=== PATIENT | male | born 1980 | race Asian ===

== ENCOUNTER 2018-12-15 12:35 | Emergency (ER) | payer OTHER ==
[~2018-12-15] VITALS: Ht 185.4 cm; Wt 109.8 kg
[2018-12-15 14:13] VITALS: BP 120/86; TEMP 98.2
== END 2018-12-15 14:19 | disposition home or self-care (01) ==
LOC: ED 12:35
DX: M25.561 Pain in right knee (principal); S83.91XA Sprain of unspecified site of right knee, initial encounter
CPT/HCPCS: 99282